=== PATIENT | female | born 1990 | race Caucasian/White ===

== ENCOUNTER 2016-09-12 06:35 | Day surgery (SDC) | payer BC ==
[2016-09-12 07:06] LABS: BASOPHILS # (AUTO) 0.1 10^3/uL (0.0-0.1); BASOPHILS % (AUTO) 0.8 %; EOSINOPHILS # (AUTO) 0.2 10^3/uL (0.0-0.7); HCT - HEMATOCRIT 39.6 % (37.0-47.0); HGB - HEMOGLOBIN 13.1 g/dL (12.0-16.0); LYMPHOCYTES # (AUTO) 2.7 10^3/uL (1.5-3.5); LYMPHOCYTES % (AUTO) 23.4 %; MEAN CORPUSCULAR HEMOGLOBIN 28.3 pg (27.0-31.0); MEAN CORPUSCULAR HGB CONC 33.1 g/dL (32.0-36.0); MEAN CORPUSCULAR VOLUME 85.4 fL (81.0-99.0); MEAN PLATELET VOLUME 9.2 fL (7.9-10.8); MONOCYTES # (AUTO) 0.9 10^3/uL (0.0-1.0); MONOCYTES % (AUTO) 7.8 %; NEUTROPHILS # (AUTO) 7.5 10^3/uL (1.5-6.6); RED BLOOD COUNT 4.64 10^6/uL (4.20-5.40); RED CELL DISTRIBUTION WIDTH 13.3 % (12.0-15.0); UNCORRECTED WHITE BLOOD COUNT 11.3 x10^3/uL; WHITE BLOOD COUNT 11.3 x10^3/uL (4.8-10.8)
[2016-09-12 07:20] LABS: ALBUMIN/GLOBULIN RATIO 1.4 (1.0-2.2); BILIRUBIN,TOTAL 0.5 mg/dL (0.2-1.0); CALCIUM 9.5 mg/dL (8.5-10.3); CREATININE 0.8 mg/dL (0.4-1.0); POTASSIUM 3.4 mmol/L (3.5-5.0)
[2016-09-12] MEDS ORDERED: SODIUM CHLORIDE 0.9% 1,000 ML IV ONE ×2 (07:36→11:45)
[2016-09-12] MEDS ORDERED: HYDROmorphone 1 MG/ML SYRINGE IVP STA ×2 (07:36→09:25)
[2016-09-12] MEDS ORDERED: ONDANSETRON 4 MG/2 ML VIAL IVP STA (07:36)
--- NOTE | 2016-09-12 07:56 | ED Physician Documentation ---
PD HPI ABD PAIN - Stated complaint Stated Complaint: ABD/BACK PX - Chief complaint Chief Complaint: Abd Pain - History obtained from History obtained from: Patient, Family (Spouse) - History of Present Illness Timing - onset: How many hours ago (2) Timing - details: Still present Quality: Pain Location: RUQ Radiation: Right flank Worsened by: Breathing Associated symptoms: Nausea. No: Fever, Vomiting, Diarrhea Similar symptoms before: Has not had sx before - Additional information Additional information: The patient is a 26-year-old female who presents with right upper quadrant abdominal pain that started about 5 AM today, awaking her from sleep. The pain radiates to her back and right flank. She reports associated nausea, but denies vomiting. She denies fever, diarrhea, or dysuria. Her last menstrual period was 2-1/2 weeks ago. She reports a history of more mild similar symptoms in the past. She has had no abdominal surgery. Review of Systems Constitutional: denies: Fever Nose: denies: Congestion Throat: denies: Sore throat Cardiac: denies: Chest pain / pressure Respiratory: denies: Dyspnea, Cough GI: reports: Abdominal Pain, Nausea. denies: Vomiting, Diarrhea : reports: LMP (2.5 weeks ago.). denies: Dysuria, Vaginal bleeding Skin: denies: Rash Musculoskeletal: denies: Extremity pain Neurologic: denies: Syncope, Headache PD PAST MEDICAL HISTORY - Past Medical History Past Medical History: Yes Cardiovascular: None Respiratory: None Neuro: None Endocrine/Autoimmune: None Psych: Anxiety Musculoskeletal: Fibromyalgia Other Past Medical History: Colitis - Past Surgical History Past Surgical History: Yes - Present Medications Home Medications: Ambulatory Orders Medication Instructions Recorded Confirmed Alprazolam 0.5 mg PO BID 09/12/16 09/12/16 Bupropion HCl [Wellbutrin Sr] 200 mg PO BID 09/12/16 09/12/16 Dicyclomine [Bentyl] 10 mg PO PRN 09/12/16 Etonogestrel/Ethinyl Estradiol 1 09/12/16 [Nuvaring Vaginal Ring] HYDROcodone/ACET 10/325 [[place] 10 1 tab PO Q6HR PRN 09/12/16 09/12/16 mg/325 mg] Losartan [Cozaar] 25 mg PO DAILY 09/12/16 09/12/16 Metoprolol Succinate 25 mg PO DAILY 09/12/16 09/12/16 Morphine Sulfate [Morphine Sulfate 15 mg PO Q8HR 09/12/16 09/12/16 ER] Prazosin HCl 2 mg PO QPM 09/12/16 09/12/16 - Allergies Allergies/Adverse Reactions: Allergies Allergy/AdvReac Type Severity Reaction Status Date / Time amoxicillin Allergy Rash Verified 09/12/16 06:40 - Living Situation Living Situation: reports: With spouse/s.o. - Social History Does the pt smoke?: No Smoking Status: Never smoker Does the pt drink ETOH?: No Does the pt have substance abuse?: No - Immunizations Immunizations are current?: Yes - POLST Patient has POLST: No PD ED PE NORMAL - Vitals Vital signs reviewed: Yes (Normal) - General General: Alert and oriented X 3, Well developed/nourished, Other (Overweight) - HEENT HEENT: Atraumatic, Pharynx benign - Neck Neck: No adenopathy, No JVD - Cardiac Cardiac: RRR, No murmur - Respiratory Respiratory: No respiratory distress, Clear bilaterally - Abdomen Abdomen: Normal bowel sounds, Soft, Other (Tenderness to palpation in the right upper quadrant, with positive Lorenzana sign.) - Back Back: No CVA TTP - Derm Derm: No rash - Extremities Extremities: No edema, No calf tenderness / cord - Neuro Neuro: Alert and oriented X 3, No motor deficit, Normal speech Results - Vitals Vitals: Vital Signs - 24 hr 09/12/16 09/12/16 09/12/16 13:20 13:25 13:30 Temperature Heart Rate Respiratory Rate Blood Pressure [Right Brachial artery] O2 Saturation 97 97 97 09/12/16 09/12/16 09/12/16 13:35 13:40 13:45 Temperature Heart Rate Respiratory Rate Blood Pressure [Right Brachial artery] O2 Saturation 97 98 98 09/12/16 09/12/16 09/12/16 13:51 13:55 14:00 Temperature Heart Rate Respiratory Rate Blood Pressure [Right Brachial artery] O2 Saturation 97 98 99 09/12/16 09/12/16 09/12/16 14:05 14:15 14:21 Temperature Heart Rate Respiratory Rate Blood Pressure [Right Brachial artery] O2 Saturation 97 97 96 09/12/16 09/12/16 09/12/16 14:30 15:15 15:45 Temperature 36.8 C 36.8 C Heart Rate 84 78 76 Respiratory 15 15 16 Rate Blood Pressure 127/58 L 114/68 128/72 [Right Brachial artery] O2 Saturation 97 97 97 Oxygen O2 Source Room air - Labs Labs: Laboratory Tests 09/12/16 09/12/16 09/12/16 06:55 06:55 09:20 WBC 11.3 H RBC 4.64 Hgb 13.1 Hct 39.6 MCV 85.4 MCH 28.3 MCHC 33.1 RDW 13.3 Plt Count 300 MPV 9.2 Neut # 7.5 H Lymph # 2.7 Hand # 0.9 Eos # 0.2 Baso # 0.1 Absolute Nucleated RBC 0.00 Nucleated RBCs 0.0 Sodium 138 Potassium 3.4 L Chloride 107 Carbon Dioxide 24 Anion Gap 7.0 BUN 15 Creatinine 0.8 Estimated GFR (MDRD) 85 L Glucose 112 H Calcium 9.5 Total Bilirubin 0.5 AST 16 ALT 25 Alkaline Phosphatase 66 Total Protein 8.0 Albumin 4.7 Globulin 3.3 Albumin/Globulin Ratio 1.4 Lipase 39 Urine Color YELLOW Urine Clarity CLEAR Urine pH 6.0 Ur Specific [place] 1.025 Urine Protein NEGATIVE Urine Glucose (UA) NEGATIVE Urine Ketones NEGATIVE Urine Occult Blood TRACE-INTA Urine Nitrite NEGATIVE Urine Bilirubin NEGATIVE Urine Urobilinogen 0.2 (NORMAL) Ur Leukocyte Esterase NEGATIVE Ur Microscopic Review NOT INDICATED Urine Culture Comments NOT INDICATED Urine HCG, Qual NEGATIVE - Rads (name of study) RUQ ultrasound Radiology: Prelim report reviewed, EMP read contemporaneously, See rad report ( 1. A nonmobile stone in the lower body of the neck of the gallbladder, 2.8 cm, with sonographic evidence of mild acute cholecystitis. 2. Negative for bile duct dilatation, filling defect, or bile duct stone.) PD MEDICAL DECISION MAKING - ED course Complexity details: reviewed results, re-evaluated patient, considered differential, d/w patient, d/w family, d/w wedding consultant ED course: The patient's presentation is significant for symptomatic cholelithiasis, with a gallstone of 2.8 cm. White count is barely above the normal range at 11.3. Liver enzymes are normal. Treatment in the emergency department included administration of normal saline 1 L IV, Dilaudid 1 mg IV 2, Zofran 4 mg IV, and Toradol 30 mg IV. The patient' s nausea and pain resolved with the above treatment. To help address her pre- surgery anxiety, Lorazepam 0.5 mg was administered IV. I discussed her condition with Dr. Austin, who is on-call for General Surgery. He evaluate her in the emergency department and plans operative intervention today. Departure - Departure Disposition: ED Transfer to [facility] Clinical Impression: Cholelithiasis Qualifiers: Cholelithiasis location: gallbladder Cholecystitis presence: with cholecystitis Cholecystitis acuity: acute Biliary obstruction: without biliary obstruction Qualified Code(s): K80.00 - Calculus of gallbladder with acute cholecystitis without obstruction Condition: Stable Discharge Date/Time: 09/12/16 11:45
[2016-09-12] MEDS ORDERED: ONDANSETRON 4 MG/2 ML VIAL ONE ×2 (08:00→13:36)
[2016-09-12] MEDS ORDERED: FAMOTIDINE 20 MG/50 ML 50 ML IV ONE (08:30)
[2016-09-12] MEDS ORDERED: diphenhydrAMINE INJ 50 MG/ML VIAL IVP STA (08:30)
--- NOTE | 2016-09-12 09:04 | Ultrasound Preliminary Report ---
Exam: US ABDOMEN LIMITED IMPRESSION: 1. A nonmobile stone in the lower body to the neck of the gallbladder, 2.8 cm, with sonographic evide nce of mild acute cholecystitis. 2. Negative for bile duct dilatation, filling defect or bile duct stone. [facility] SITE ID: [id number]
--- NOTE | 2016-09-12 09:07 | Ultrasound Report ---
EXAM: ABDOMEN ULTRASOUND LIMITED, RUQ EXAM DATE: 09/12/2016 08:52 AM. CLINICAL HISTORY: RUQ abdominal pain; clinical concern for biliary colic. COMPARISON: None. TECHNIQUE: Real-time scanning was performed with static images obtained. FINDINGS: Liver: Normal contour and echotexture. 16.8 cm. Main portal vein flow: Hepatopetal. Gallbladder: There is a nonmobile stone in the lower body to the gallbladder neck, 2.8 cm, with borde rline wall thickening of 3.2 mm, and sonographic Lorenzana's sign. Biliary System: CBD measures 5.1 mm without visualized stone or filling. No intrahepatic or extrahepa tic ductal dilatation. Other: No ascites. The right kidney and the visualized pancreatic body are unremarkable. IMPRESSION: 1. A nonmobile stone in the lower body to the neck of the gallbladder, 2.8 cm, with sonographic evide nce of mild acute cholecystitis. 2. Negative for bile duct dilatation, filling defect or bile duct stone. [facility] Referring Provider Line: [phone] SITE ID: [id number]
[2016-09-12] MEDS ORDERED: KETOROLAC 60 MG/2 ML VIAL IVP STA (09:25)
[2016-09-12 09:28] LABS: BILIRUBIN,URINE NEGATIVE (NEGATIVE)
[2016-09-12 09:30] LABS: UA CHARGE (STRIP ONLY) YES; UR CULTURE IF IND NOT INDICATED
[2016-09-12 09:31] LABS: HCG UR QUAL NEGATIVE
[2016-09-12] MEDS ORDERED: LORazepam 2 MG/ML SYRINGE IVP STA (09:44)
[2016-09-12] MEDS ORDERED: KETOROLAC 30 MG/ML VIAL ONE (09:48)
[2016-09-12] MEDS ORDERED: HYDROmorphone 1 MG/ML SYRINGE ONE ×3 (09:48→14:01)
[2016-09-12] MEDS ORDERED: LORazepam 2 MG/ML SYRINGE ONE (09:49)
[2016-09-12] MEDS ORDERED: LACTATED RINGERS 1,000 ML IV ONE ×2 (11:45→12:33)
[2016-09-12] MEDS ORDERED: MIDAZOLAM 2 MG/2 ML VIAL IVP ONE (12:15)
[2016-09-12] MEDS ORDERED: ROCURONIUM 50 MG/5 ML VIAL IVP ONE (12:15)
[2016-09-12] MEDS ORDERED: SUCCINYLCHOLINE 200 MG/10 ML VIAL IVP ONE (12:15)
[2016-09-12] MEDS ORDERED: ONDANSETRON 4 MG/2 ML VIAL IVP ONE (12:15)
[2016-09-12] MEDS ORDERED: ACETAMINOPHEN 1,000 MG/100 ML VIAL IV ONE (12:15)
[2016-09-12] MEDS ORDERED: METOPROLOL 5 MG/5 ML VIAL IVP ONE (12:15)
[2016-09-12] MEDS ORDERED: PROPOFOL 200 MG/20 ML VIAL IVP ONE (12:15)
[2016-09-12] MEDS ORDERED: DEXAMETHASONE 4 MG/ML VIAL IVP ONE (12:15)
[2016-09-12] MEDS ORDERED: fentaNYL 100 MCG/2 ML VIAL IVP ONE (12:15)
[2016-09-12] MEDS ORDERED: LIDOCAINE-MPF 2% 5 ML VIAL IM ONE (12:15)
[2016-09-12] MEDS ORDERED: BUPIVACAINE 0.5% PF 30 ML VIAL SUBQ ONE ×2 (12:23→12:51)
--- NOTE | 2016-09-12 12:28 | HISTORY & PHYSICAL EXAMINATION ---
PREOPERATIVE HISTORY AND PHYSICAL/CONSULTATION DATE OF ADMISSION: 09/12/2016 I am called on consultation by Dr. Saavedra to evaluate this very nervous but pleasant 26-year-old femal e for acute cholecystitis. The patient was evaluated in room 7 at [facility]'s [facility] en[facility] Department. At her bedside was a gentleman whom I assumed was her , but it may be her s ignificant other, I did not ask. The patient has presented to our emergency department with acute rig ht upper quadrant abdominal pain that started about 5 this morning. It is described as crampy. The pa in had a waxing and waning quality, but it never did go completely away. It was quite severe. It radi ated through to her back and in fact it sometimes went from her back to the front. She did have some associated nausea, but no vomiting. She denies any fever, diarrhea, or dysuria. She has had similar s ymptoms in the past, but they were not to the degree that this pain was this morning. She has not had any previous abdominal surgery, in fact the only surgery she has had has been dental surgery. ALLERGIES: AMOXICILLIN. SHE STATES THAT SHE HAD IT A CHILD AND HER MOTHER TELLS HER SHE TURNED INT O A "LOBSTER." MEDICATIONS 1. Alprazolam 0.5 mg p.o. b.i.d. 2. Wellbutrin SR 200 mg p.o. b.i.d. 3. Bentyl 10 mg p.o. as needed. 4. NuvaRing vaginal ring. 5. Hydrocodone/acetaminophen 10/325 one tab as needed every 6 hours. 6. Losartan 25 mg p.o. daily. 7. Metoprolol 25 mg p.o. daily. 8. Morphine sulfate ER 15 mg p.o. every 8 hours. 9. Prazosin hydrochlorothiazide 2 mg p.o. every evening. PAST MEDICAL AND SURGICAL HISTORY 1. Fibromyalgia. 2. Anxiety. 3. Colitis. 4. Dental surgery. SOCIAL HISTORY Tobacco: None. Alcohol: None. Recreational drugs: None. FAMILY HISTORY: Noncontributory for this disease. REVIEW OF SYSTEMS CONSTITUTIONAL: She denies unexpected weight loss or weight gain. She has been trying to lose weight and eat better. She denies fever. HEENT: She denies any change, improvement, or decrease in her vision or hearing. She denies sore thro at, she denies difficulty speaking. HEART: She denies chest pain or pressure. HEMATOLOGIC: She denies any significant bleeding. MUSCULOSKELETAL: She states that she has fibromyalgia. PHYSICAL EXAMINATION GENERAL: Again, this is a very pleasant 26-year-old female who appears her stated age. She is well-de veloped and well-nourished and is in no acute distress. She is alert and oriented x4. Again, evaluate d in room 7 at [facility]'s Emergency Department. VITAL SIGNS: Please refer to nurses' notes. HEENT: She is normocephalic, atraumatic. Sclerae not injected. Anicteric. Mucous membranes are pink a nd moist. Her right lower lip is pierced. NECK: Supple, without mass or bruit. HEART: Regular rate and rhythm without rub, murmur, or gallop. LUNGS: Clear to auscultation bilaterally. ABDOMEN: Obese. Tender in the right upper quadrant. Normoactive bowel sounds. RECTAL: Deferred. GYNECOLOGIC: Deferred. EXTREMITIES: Show no clubbing, cyanosis or edema. There are some punctate lesions on all 4 extremitie s and on her trunk. LABORATORY STUDIES: Abnormalities in her chemistry include a potassium 3.4, estimated GFR of 85, gluc ose 112. Abnormalities on her hematology include a white blood cell count of 11.3 and neutrophils of 7.5. IMAGING: Abdominal ultrasound provided by Dr. Cast today reveals a non mobile stone in the lower body to the neck of the gallbladder, 2.8 cm, with sonographic evidence of mild acute cholecystitis. Negat charles for bile duct dilatation, filling defect, or duct stone. ASSESSMENT: Acute cholecystitis. PLAN: Laparoscopic cholecystectomy, possible open cholecystectomy, possible intraoperative cholangiog radha, possible common bile duct exploration. The indications for the procedure, alternatives, and poss ible complications, including, but not limited to, bleeding with all of its risks including transfusi on, infection, and were fully explained to the patient. All her questions were answered. Verbal and written consent was obtained. The patient in preparation for this has been maintained on p.o. an d she will receive preoperative antibiotics for prophylaxis against surgical infection. In addition, she will have TEDs and Venodynes placed for prophylaxis against deep vein thrombosis. I have asked th e patient to let us know if there is any way we can make her stay at [facility] mo re comfortable, please let us know. Please note, diagrams were completed and given to her to explain the proposed surgery. All in all, 45 minutes of [id number] time was spent with the patient and her significant other. JOB #: [id number] EXT JOB #:[id number]
[2016-09-12] MEDS ORDERED: MIDAZOLAM 2 MG/2 ML VIAL ONE (13:21)
[2016-09-12] MEDS ORDERED: KETOROLAC 15 MG/ML VIAL ONE (13:25)
[2016-09-12] MEDS: fentaNYL 100 MCG/2 ML VIAL ONE ×2 (13:25→13:32)
--- NOTE | 2016-09-12 13:36 | OPERATIVE REPORT ---
Operative Report - General Procedure Date: 09/12/16 Planned Procedure: Laparoscopic cholecystectomy, possible open cholecystectomy, possible intra Pre-Op Diagnosis: Acute cholecystitis Post Op Diagnosis: Same - Procedure Note Primary Surgeon: Jeffrey Moy Anesthesia Provider: Raul Jensen Anesthesia Technique: General ET tube, Local (30 mL 1/2% marcaine) Estimated Blood Loss (in cc): 5 (Lhzycp=2965 mL crystalloid) Complications: None. - Other Other Information/Narrative: OPERATIVE DESCRIPTION/REPORT: After verbal and written informed consent was obtained detailing the risks of infection, bleeding with all of its risks including transfusion, common bile duct injury, and the patient was brought to the operative suite and placed in the supine position on the operating room table. Monitoring devices were applied along with TEDs and pneumatic compressive stockings. Care was taken to avoid pressure points. Prophylactic antibiotics were given. An adequate level of general endotracheal anesthesia was established by Raul Jensen. The abdomen was then prepped with ChloraPrep and draped in a sterile fashion. A "time in" then confirmed that the patient was identified with 3 identifiers (name, birthdate and medical record number), the history and physical was in the chart, the signed consent confirming the procedure was in the chart, the patient was in the correct position, the aforementioned prophylactic measures were in place or given, we had the correct personnel and equipment to complete the procedure and that anesthesia, surgery and nursing were given an opportunity to express any concerns. The initial incision was at the umbilicus and dissection to the linea alba was completed using blunt dissection. The linea alba was grasped with a Mynor and incised. In a similar manner the peritoneum was grasped and incised using Metzenbaum scissors. In this location, a 12 mm blunt tipped, balloon tipped port was placed and the balloon was inflated to keep the port in position. The abdominal cavity was insufflated with carbon dioxide to steady-state pressure of 15 mmHg. Three additional 5 mm ports were placed in standard location for laparoscopic cholecystectomy (subxiphoid and 2 right subcostal). The gallbladder fundus was grasped with an atraumatic grasper. Multiple adhesions had to be taken down by blunt and sharp dissection along with electrocautery. Eventually, we identified the infundibulum, and this was then grasped and retracted inferior and laterally. Dissection was then begun in the angle of Calot. The cystic duct and (slightly medially and posteriorly) cystic artery were clearly identified. The critical view was obtained. Two clips proximally and one clip distally were used to control both the cystic duct and cystic artery. Both were then transected with laparoscopic edouard. The gallbladder was then removed from its fossa in a retrograde fashion using electrocautery. It was placed in an EndoCatch bag to be extracted through the 12 mm port site. I irrigated the right upper quadrant with a liter of warm sterile saline, and the area was aspirated dry. I inspected the gallbladder fossa and there was no bleeding or bile leak. Clips on the cystic duct and cystic artery appeared to be secure. I briefly visually explored the abdomen. There was no other evidence of overt pathology. I injected the port sites at the peritoneal, fascial, and skin levels under direct vision with 0.5% Marcaine. All ports and the EndoCatch containing the gallbladder were removed. The fascia at the umbilicus was reapproximated using 2 figure-of- eight 0 Vicryl sutures. The skin at each port site was approximated using a subcuticular 4-0 Monocryl. The surgical count of instruments, needles and sponges was reported as correct twice. Mastisol, Steri-Strips and sterile surgical dressings were applied. The patient was then awakened from anesthesia , extubated, and having tolerated the procedure well, was transported to the recovery room. No complications were encountered. A "time out" confirmed the operation performed, the fluids given, the estimated blood loss and anesthesia, surgery and nursing were given an opportunuty to express any concerns.
[2016-09-12] MEDS ORDERED: diphenhydrAMINE INJ 50 MG/ML VIAL ONE (13:43)
[2016-09-12] MEDS: HYDROmorphone 1 MG/ML SYRINGE ONE ×5 (13:49→14:13)
[2016-09-12] MEDS ORDERED: SCOPOLAMINE PATCH TOP ONE (14:40)
[2016-09-12] MEDS ORDERED: PROMETHAZINE 25 MG/1 ML VIAL ONE (14:41)
[2016-09-12] MEDS ORDERED: HYDROcod/ACETAM 10 MG/325 MG TABLET ONE (15:25)
[2016-09-12 16:10] VITALS: BP 128/72
== END 2016-09-12 11:06 | disposition home or self-care (01) ==
LOC: ED 06:35 → SDS 11:05
PROVIDERS: ATTEND Surgery
PROC: 0FT44ZZ Resection of Gallbladder, Percutaneous Endoscopic Approach (ICD-10-PCS; principal; 2016-09-12 12:00)
DX: K80.12 Calculus of gallbladder with acute and chronic cholecystitis without obstruction (principal); I10 Essential (primary) hypertension; G47.33 Obstructive sleep apnea (adult) (pediatric)
CPT/HCPCS: 36415; 47562; 76705; 80053; 81003; 81025; 83690; 85025; 96361; 96374; 96375; 96376; 99283; 99285; A9270; J0131; J1170; J2060; J3490; J7120; 81001; 87086; 88304

== ENCOUNTER 2016-09-14 00:03 | Outpatient (CLI) | payer BC | END 2016-09-14 00:04 | disposition critical access hospital (66) | LOC: EMS 00:03 | PROVIDERS: ATTEND Surgery | DX: M54.9 Dorsalgia, unspecified (principal); R10.9 Unspecified abdominal pain | CPT/HCPCS: A0425; A0427 ==

== ENCOUNTER 2016-09-14 00:15 | Emergency (ER) | payer BC ==
--- NOTE | 2016-09-14 01:18 | ED Physician Documentation ---
PD HPI ABD PAIN - Stated complaint Stated Complaint: POST-OP PAIN - Chief complaint Chief Complaint: Abd Pain - History obtained from History obtained from: Patient - History of Present Illness Timing - onset: Yesterday Timing - details: Gradual onset, Waxing and waning Pain level now: 8 Quality: Pain Location: Periumbilical Radiation: Lower back Improved by: Laying still Worsened by: Moving Associated symptoms: No: Fever, Nausea, Vomiting Recently seen: Surgery - Additional information Additional information: cholecystectomy performed Tuesday 09/19 (sent home same day). She was having tolerable pain during the day Thursday but tonight had sudden worsening of pain at umbilicus and across mid/lower back when she went to lie down in bed. Review of Systems Constitutional: denies: Fever, Chills, Sweats Cardiac: reports: Reviewed and negative Respiratory: reports: Reviewed and negative GI: reports: Abdominal Pain. denies: Nausea, Vomiting, Constipation, Diarrhea : denies: Dysuria, Frequency Musculoskeletal: reports: Back pain PD PAST MEDICAL HISTORY - Past Medical History Past Medical History: Yes Cardiovascular: None Respiratory: None Neuro: None Endocrine/Autoimmune: None Psych: Depression, Anxiety, Post traumatic stress disorder Musculoskeletal: Fibromyalgia - Past Surgical History Past Surgical History: Yes General: Cholecystectomy - Present Medications Home Medications: Ambulatory Orders Medication Instructions Recorded Confirmed Alprazolam 0.5 mg PO BID 09/12/16 09/14/16 Bupropion HCl [Wellbutrin Sr] 200 mg PO BID 09/12/16 09/14/16 Dicyclomine [Bentyl] 10 mg PO PRN PRN 09/12/16 09/14/16 Etonogestrel/Ethinyl Estradiol 1 insert VG ONCE 09/12/16 09/14/16 [Nuvaring Vaginal Ring] HYDROcodone/ACET 10/325 [[place] 10 1 tab PO Q6HR PRN 09/12/16 09/14/16 mg/325 mg] Losartan [Cozaar] 25 mg PO DAILY 09/12/16 09/14/16 Metoprolol Succinate 25 mg PO DAILY 09/12/16 09/14/16 Morphine Sulfate [Morphine Sulfate 15 mg PO Q8HR 09/12/16 09/14/16 ER] Prazosin HCl 2 mg PO QPM 09/12/16 09/14/16 - Allergies Allergies/Adverse Reactions: Allergies Allergy/AdvReac Type Severity Reaction Status Date / Time amoxicillin Allergy Rash Verified 09/14/16 00:23 - Social History Does the pt smoke?: No Smoking Status: Never smoker Does the pt drink ETOH?: No Does the pt have substance abuse?: No - Immunizations Immunizations are current?: Yes - POLST Patient has POLST: No PD ED PE NORMAL - Vitals Vital signs reviewed: Yes - General General: Alert and oriented X 3, Well developed/nourished, Other (appears to be in painful discomfort) - Cardiac Cardiac: RRR, No murmur - Respiratory Respiratory: No respiratory distress, Clear bilaterally - Abdomen Abdomen: Soft, Non distended, Other (surgical sites (RUQ and umbilicus) are C/D/ I without erythema, fluctuance, or discharge. There is periumbilical tenderness to palpation that is c/w recent cholecystectomy) Results - Vitals Vitals: Vital Signs - 24 hr 09/14/16 09/14/16 09/14/16 00:17 01:40 02:26 Temperature 36.5 C Heart Rate 72 60 64 Respiratory 20 16 16 Rate Blood Pressure 105/49 L 105/49 L 112/52 L O2 Saturation 99 100 97 09/14/16 04:06 Temperature Heart Rate 60 Respiratory 16 Rate Blood Pressure 100/49 L O2 Saturation 100 Oxygen O2 Source Room air - Labs Labs: Laboratory Tests 09/14/16 09/14/16 01:45 01:45 WBC 15.3 H RBC 3.84 L Hgb 10.9 L Hct 33.2 L MCV 86.4 MCH 28.5 MCHC 32.9 RDW 13.6 Plt Count 297 MPV 9.3 Neut # 10.9 H Lymph # 3.2 [place] # 1.0 Eos # 0.2 Baso # 0.1 Absolute Nucleated RBC 0.00 Nucleated RBCs 0.0 Sodium 136 Potassium 3.2 L Chloride 105 Carbon Dioxide 23 Anion Gap 8.0 BUN 14 Creatinine 0.8 Estimated GFR (MDRD) 85 L Glucose 88 Calcium 8.8 Total Bilirubin 0.5 AST 51 H ALT 59 Alkaline Phosphatase 53 Total Protein 6.9 Albumin 4.0 Globulin 2.9 Albumin/Globulin Ratio 1.4 Lipase 26 - Rads (name of study) CT A/P Radiology: Prelim report reviewed, See rad report PD MEDICAL DECISION MAKING - ED course Complexity details: reviewed results, re-evaluated patient, considered differential, d/w patient ED course: D/W Dr. Moy, including results. Plan is to d/c home if pain control is adequately achieved. Patient reported good pain relief after 3rd dose of 1mg IV dilaudid. Also given IV toradol. She is comfortable with plan to d/c home and return if worse. Departure - Departure Disposition: 01 Home, Self Care Clinical Impression: Postoperative pain Condition: Good Instructions: ED Post Op Pain Follow-Up: Jeffrey Moy MD [Provider Admit Priv/Credential] - Discharge Date/Time: 09/14/16 04:09
[2016-09-14] MEDS ORDERED: HYDROmorphone 1 MG/ML SYRINGE IVP STA ×3 (01:32→03:37)
[2016-09-14] MEDS ORDERED: SODIUM CHLORIDE 0.9% 1,000 ML IV STA (01:32)
[2016-09-14] MEDS ORDERED: HYDROmorphone 1 MG/ML SYRINGE ONE ×3 (01:38→03:43)
[2016-09-14 01:54] LABS: BASOPHILS # (AUTO) 0.1 10^3/uL (0.0-0.1); BASOPHILS % (AUTO) 0.3 %; EOSINOPHILS # (AUTO) 0.2 10^3/uL (0.0-0.7); EOSINOPHILS % (AUTO) 1.3 %; HCT - HEMATOCRIT 33.2 % (37.0-47.0); HGB - HEMOGLOBIN 10.9 g/dL (12.0-16.0); LYMPHOCYTES # (AUTO) 3.2 10^3/uL (1.5-3.5); LYMPHOCYTES % (AUTO) 20.7 %; MEAN CORPUSCULAR HEMOGLOBIN 28.5 pg (27.0-31.0); MEAN CORPUSCULAR HGB CONC 32.9 g/dL (32.0-36.0); MEAN CORPUSCULAR VOLUME 86.4 fL (81.0-99.0); MEAN PLATELET VOLUME 9.3 fL (7.9-10.8); MONOCYTES % (AUTO) 6.5 %; NEUTROPHILS # (AUTO) 10.9 10^3/uL (1.5-6.6); NEUTROPHILS % (AUTO) 71.2 %; RED BLOOD COUNT 3.84 10^6/uL (4.20-5.40); RED CELL DISTRIBUTION WIDTH 13.6 % (12.0-15.0); UNCORRECTED WHITE BLOOD COUNT 15.3 x10^3/uL; WHITE BLOOD COUNT 15.3 x10^3/uL (4.8-10.8)
[2016-09-14 02:04] LABS: ALBUMIN/GLOBULIN RATIO 1.4 (1.0-2.2); BILIRUBIN,TOTAL 0.5 mg/dL (0.2-1.0); CALCIUM 8.8 mg/dL (8.5-10.3); CREATININE 0.8 mg/dL (0.4-1.0); POTASSIUM 3.2 mmol/L (3.5-5.0); TOTAL PROTEIN 6.9 g/dL (6.7-8.2)
[2016-09-14] MEDS ORDERED: IOPAMIDOL-300 100 ML VIAL IVP ONE (02:23)
--- NOTE | 2016-09-14 02:45 | CT Preliminary Report ---
Exam: CT Abdomen/Pelvis W/ IMPRESSION: No acute inflammatory or obstructive process seen in the abdomen or pelvis. No apparent complication from recent cholecystectomy. [facility] SITE ID: [id number]
--- NOTE | 2016-09-14 02:48 | CT Report ---
EXAM: CT ABDOMEN AND PELVIS EXAM DATE: 09/14/2016 02:28 AM. CLINICAL HISTORY: Abdominal pain COMPARISONS: 09/12/2016 ultrasound. TECHNIQUE: Routine helical CT imaging was performed through the abdomen and pelvis. IV contrast: Yes . Enteric contrast: No . Reconstructions: Coronal and sagittal. In accordance with CT protocol optimization, one or more of the following dose reduction techniques w ere utilized for this exam: automated exposure control, adjustment of mA and/or KV based on patient s ize, or use of iterative reconstructive technique. FINDINGS: Lung Bases: Unremarkable. Liver: Unremarkable. No suspicious masses. Gallbladder/Bile Ducts: Unremarkable post recent cholecystectomy. Spleen: Unremarkable. Pancreas: Unremarkable. Adrenal Glands: Unremarkable. Kidneys: Unremarkable. No suspicious masses or hydronephrosis. Peritoneal Cavity/Bowel: No bowel obstruction or inflammatory process seen. No free air or significan t free fluid. No masses or adenopathy. The appendix is normal. No excessive stool burden. Pelvic Organs: Bladder, uterus, and adnexa appear unremarkable. Vasculature: No aneurysms or other significant abnormality. Bones: No significant abnormality. Other: Small gas bubbles at the umbilicus, consistent with recent surgery. IMPRESSION: No acute inflammatory or obstructive process seen in the abdomen or pelvis. No apparent complication from recent cholecystectomy. [facility] Referring Provider Line: [phone] SITE ID: [id number]
[2016-09-14] MEDS ORDERED: KETOROLAC 60 MG/2 ML VIAL IVP STA (03:37)
[2016-09-14] MEDS ORDERED: KETOROLAC 30 MG/ML VIAL ONE (03:42)
[2016-09-14 04:07] VITALS: BP 100/49
== END 2016-09-14 04:09 | disposition home or self-care (01) ==
LOC: EDUNIT# → ED 00:15
DX: R10.33 Periumbilical pain (principal); G89.18 Other acute postprocedural pain; M79.7 Fibromyalgia
CPT/HCPCS: 36415; 74177; 80053; 83690; 85025; 96374; 96375; 96376; 99284; J1170; Q9967